=== PATIENT | female | born 1955 | race Caucasian/White ===

== ENCOUNTER 2024-08-11 15:22 | Observation (INO) ==
[2024-08-11] MEDS: NITROGLYCERIN SL 0.4 MG/TAB TAB SL PRN (15:50)
--- NOTE | 2024-08-11 15:53 | Emergency Department Note ---
Impression & Plan Hypertensive urgency, Chest pain, Hx of coronary artery bypass surgery, S/P coronary artery stent placement ED Provider Note NAME: JIMMY MARRERO AGE: 69 SEX: F : 1955 ARRIVES VIA: Walk-In INFORMANT: Patient, ED PROVIDER(S): Louie Tapia MD CHIEF COMPLAINT: Chest pain MEDICAL DECISION MAKING: Patient presents due to concern for chest pain. Significantly hypertensive. Patient with some ST depressions in the lateral high lateral leads. No obvious prior for comparison. The patient was ordered nitro. Blood work shows a normal white count H&H and platelet count kidney function is unremarkable. Chest pain significantly improved. Troponin negative. Given the patient's significant hypertension chest pain prior history of MS I do believe the patient would benefit from admission. I did speak the on-call hospital service Dr. Friend and the patient was admitted to the medicine service. Discussion w/ other healthcare providers: Dr. Carmona inpatient medicine service Prior /Outside records reviewed: None Differential diagnosis: Cardiac ischemia, aortic dissection, pulmonary embolism, pneumothorax, pneumonia, pericarditis, myocarditis, GERD, cholecystitis, pancreatitis, musculoskeletal, as well as other pathologies were considered. Diagnostics, as interpreted by me: ECG: Normal sinus rhythm, rate of 68, normal intervals, normal axis, ST depressions in the lateral and high lateral leads. No obvious STEMI. Repeat EKG interpreted by myself Normal sinus rhythm, rate of 68, normal intervals, normal axis ST depressions in lateral and high lateral leads. Cardiac monitoring: An order was placed for continuous cardiac monitoring. The monitor shows a rate of 72 with sinus rhythm. Patient was placed on pulse oximetry Medical decision rules: Heart score Imaging studies: I informally interpreted the patient's chest x-ray does not show obvious pneumonia or pneumothorax with formal report to follow. HPI: Patient presents due to concern for chest pains. The patient reports that she has had some intermittent chest pain over the last month left-sided and a heaviness. The patient states that today it started around 10 AM and has been constant throughout the day. Patient denies any falls or trauma. The patient does notice a positional component where if she lays flat seems to worsen and patient has had to use several pillows now. Patient denies any recent upper respiratory symptoms. The patient does have chronic leg swelling which is unchanged. Patient reports that she did have stents placed in 2004 and had worsening disease and had to have a bypass in 2013. The patient does follow with Dr. Moon with cardiology in [place] also follows with a Dr. Hurst with [facility]. Patient and state that they eat well but no changes in salt or processed foods in the diet. Patient states that she does take antihypertensives. Reviewed the medication list shows the patient does take carvedilol Imdur and lisinopril which she states she has had no recent changes or missed doses. Patient with a prior nitro prescription but states that this had so did not take it today. PAST MEDICAL HISTORY: See Below PAST SURGICAL HISTORY: See Below SOCIAL HISTORY: See Below HOME MEDICATIONS: See Below ALLERGIES: See Below VITALS: See Below PHYSICAL EXAMINATION: GENERAL: NAD, non-toxic. Wearing glasses. EYE EXAM: Normal conjunctiva. PERRL, no anisocoria and EOM's grossly intact w/o pain. OROPHARYNX: Moist mucus membranes, grossly normal dentition. NECK: Trachea midline, no stridor. Supple, no nuchal rigidity, no adenopathy, non-tender. No signs of meningismus. FROM of the neck with good chin to chest and neck extension. LUNGS: Clear to auscultation. Normal chest wall mechanics. HEART: NSR, no MRG. ABDOMEN: Abdomen soft, non-tender, no masses, no rebound or guarding. BACK: No CVA TTP. SKIN: No rashes and no bruising. UPPER EXTREMITIES: Upper extremities are grossly normal. LOWER EXTREMITIES: Grossly normal, 1-2+ symmetric bilateral lower extremity edema without calf pain erythema. NEURO EXAM: A&O x3, cranial nerves II-XII grossly intact, normal speech, moves all 4 extremities. Past Med/Surg History Problem List (Updated 08/14/24 @ 11:26 by Louie Tapia MD) Hypertension S/P coronary artery stent placement (Acute) CAD (coronary artery disease) Epigastric pain Hypertensive urgency (Acute) Hx of coronary artery bypass surgery (Acute) Chest pain (Acute) Medical History Chronic GERD Social History (System 08/12/24 @ 07:16 by Nathalia Garcia) Smoking Status: Former smoker Tobacco Type: Cigarettes Cigarettes Per Day: 1 ppd; Second Hand Exposure: No; Do You Dip or Chew Tobacco: No; Hx Alcohol Use: No Hx Substance Use: No Preferred Language: Egyptian Communication Ability: Effective Acid Wash Operator Required: No Beliefs That Will Affect Care: None Current Living Situation: Spouse Feels Safe at Home: Yes Assistive Devices: Glasses Allergies Allergies Allergy/AdvReac Type Severity Reaction Status Date / Time [id number] Reductase AdvReac Severe LEG/MUSCLE Verified 08/13/24 12:15 Inhibitor PAIN/CRAMPS Home Meds Home Medications Medication Instructions Recorded Confirmed acetaminophen 500 mg tablet 1,000 mg PO Q6H PRN PAIN/FEVER 08/11/24 08/11/24 (Tylenol Extra Strength) aspirin 81 mg tablet,delayed 81 mg PO QAM 08/11/24 08/11/24 release biotin 10,000 mcg capsule 10,000 mcg PO QAM 08/11/24 08/11/24 carvedilol 6.25 mg tablet 6.25 mg PO BID 08/11/24 08/11/24 clopidogrel 75 mg tablet 75 mg PO QAM 08/11/24 08/11/24 evolocumab 140 mg/mL subcutaneous 140 mg subcut .Q2WKS 08/11/24 08/11/24 pen injector (Christopher Schneidre) lisinopril 20 mg tablet 20 mg PO BID 08/11/24 08/11/24 lysine 500 mg tablet (L-Lysine) 500 mg PO QAM 08/11/24 08/11/24 pantoprazole 40 mg tablet,delayed 40 mg PO QAM 08/11/24 08/11/24 release Previous Rx's Medication Instructions Recorded amlodipine 5 mg tablet (Norvasc) 5 mg PO HS 30 days #30 tabs 08/13/24 isosorbide mononitrate 60 mg 60 mg PO QAM 30 days #30 tabs 08/13/24 tablet,extended release 24 hr nitroglycerin 0.4 mg sublingual 0.4 mg sublingual Q5M PRN chest 08/13/24 tablet (Nitrostat) pain #15 tabs pantoprazole 40 mg tablet,delayed 40 mg PO BID 7 days #14 tabs 08/13/24 release Results & Data (ED) Vital Signs Vital Signs - 24 hr 08/11/24 15:25 08/11/24 15:37 08/11/24 15:42 Temperature 36.6 C Temperature Source Temporal Artery Scan Pulse Rate 76 L Pulse Rate [Left Apical] 76 Respiratory Rate 20 L 24 Respiratory Effort / Characteristics Non-Labored Spontaneous Non-Labored Spontaneous Respiratory Depth Normal Normal Respiratory Pattern Regular Regular Blood Pressure 227/113 Blood Pressure [Right Arm] 255/120 H 241/122 H Blood Pressure Mean 151 Blood Pressure Mean [Right Arm] 165 161 Blood Pressure Position [Right Arm] Sitting Semi-fowlers Pulse Oximetry 94 96 Oxygen Delivery Method Room Air Room Air 08/11/24 15:56 08/11/24 16:00 08/11/24 16:01 Temperature Temperature Source Pulse Rate 67 Pulse Rate [Left Apical] Respiratory Rate 23 Respiratory Effort / Characteristics Respiratory Depth Respiratory Pattern Blood Pressure 216/101 H 217/101 H Blood Pressure [Right Arm] Blood Pressure Mean 128 135 Blood Pressure Mean [Right Arm] Blood Pressure Position [Right Arm] Pulse Oximetry 96 Oxygen Delivery Method Room Air 08/11/24 16:03 08/11/24 16:05 08/11/24 16:10 Temperature Temperature Source Pulse Rate 63 Pulse Rate [Left Apical] Respiratory Rate 15 Respiratory Effort / Characteristics Respiratory Depth Respiratory Pattern Blood Pressure 204/101 H 202/100 H Blood Pressure [Right Arm] Blood Pressure Mean 147 139 Blood Pressure Mean [Right Arm] Blood Pressure Position [Right Arm] Pulse Oximetry 96 Oxygen Delivery Method Room Air 08/11/24 16:12 08/11/24 16:19 Temperature Temperature Source Pulse Rate 63 61 Pulse Rate [Left Apical] Respiratory Rate 20 Respiratory Effort / Characteristics Respiratory Depth Respiratory Pattern Blood Pressure Blood Pressure [Right Arm] Blood Pressure Mean Blood Pressure Mean [Right Arm] Blood Pressure Position [Right Arm] Pulse Oximetry 95 Oxygen Delivery Method Room Air Home Medications Current Medication List: was personally reviewed by me Laboratory Data Attestation: I reviewed the patient's lab results. 08/12/24 06:13 08/12/24 06:13 Lab Results 08/11/24 08/11/24 Range/Units 15:50 15:55 WBC 7.64 (4.8-10.8) K/ul RBC 4.85 (4.20-5.40) M/uL Hgb 13.3 (12.0-16.0) g/dl Hct 40.6 (37.0-47.0) % MCV 83.7 (80.0-100.0) fL MCH 27.4 (25.0-34.0) pg MCHC 32.8 (32.0-36.0) g/dL RDW Std Deviation 41.5 (36.4-46.3) fL RDW Coeff of Jonathan 13.4 (11.5-14.5) % Plt Count 211 (130-400) K/uL MPV 10.4 (9.4-12.4) fL Immature Gran % (Auto) 0.4 % Neut % (Auto) 53.2 % Lymph % (Auto) 32.7 % [place] % (Auto) 8.0 % Eos % (Auto) 4.8 % Baso % (Auto) 0.9 % Neut # (Auto) 4.06 (1.40-6.50) K/uL Lymph # (Auto) 2.50 (1.20-3.40) K/uL [place] # (Auto) 0.61 H (0.11-0.59) K/uL Eos # (Auto) 0.37 (0.00-0.50) K/uL Baso # (Auto) 0.07 (0.00-0.20) K/uL Immature Gran # (Auto) 0.03 (0.01-0.20) K/uL Sodium 139 (136-145) mmol/L Potassium 3.8 (3.5-5.1) mmol/L Chloride 105 (98-107) mmol/L Carbon Dioxide 29 (21-32) mmol/L Anion Gap 5 (3-11) BUN 14 (6-23) mg/dl Creatinine 0.66 (0.6-1.2) mg/dl Est Cr Clr Drug Dosing 99.6 ml/min eGFR 94.90 BUN/Creatinine Ratio 21.2 H (10-20) Glucose 89 (70-99(Fasting)) mg/dl Calcium 9.4 (8.6-10.3) mg/dl Total Bilirubin 0.4 (0.2-1.0) mg/dl AST 13 (13-39) U/L ALT 11 (7-52) U/L Alkaline Phosphatase 102 (34-104) U/L Troponin I High Sens < 2.3 (0-14) pg/ml Total Protein 7.7 (6.0-8.3) gm/dl Albumin 4.4 (3.4-5.0) gm/dl Globulin 3.3 (2.5-4.0) gm/dl Albumin/Globulin Ratio 1.3 (0.9-2) Lipase 12 (11-82) U/L Hepatitis C Ab Screen Negative (Negative) Administered Medications Discontinued Medications Acetaminophen (Acetaminophen 500 Mg Tab) 1,000 mg PO Q8 PRN PRN Reason: Pain or Fever Stop: 09/10/24 19:42 Last Admin: 08/12/24 13:08 Dose: 1,000 mg Documented By: Admin: 08/11/24 23:50 Dose: 1,000 mg Documented By: ZACH Amlodipine Besylate (Amlodipine Besylate 5 Mg Tab) 5 mg PO HS LENORA Stop: 09/11/24 20:59 Last Admin: 08/12/24 21:34 Dose: 5 mg Documented By: ZACH Aspirin (Aspirin Chew 324 Mg) 324 mg PO NOW STA Stop: 08/11/24 16:32 Last Admin: 08/11/24 16:33 Dose: 324 mg Documented By: KEIKO Aspirin (Aspirin 81 Mg Ectab) 81 mg PO [facility] Stop: 09/11/24 08:59 Last Admin: 08/13/24 14:25 Dose: 81 mg Documented By: AEArnulfo Admin: 08/12/24 08:11 Dose: 81 mg Documented By: ALCIDES Carvedilol (Carvedilol 6.25 Mg Tab) 6.25 mg PO NOW ONE Stop: 08/11/24 19:31 Last Admin: 08/11/24 19:53 Dose: 6.25 mg Documented By: KEIKO Carvedilol (Carvedilol 6.25 Mg Tab) 6.25 mg PO BID [facility] Stop: 09/10/24 20:59 Last Admin: 08/13/24 10:40 Dose: 6.25 mg Documented By: AEArnulfo Admin: 08/12/24 21:29 Dose: 6.25 mg Documented By: Admin: 08/12/24 11:30 Dose: 6.25 mg Documented By: Admin: 08/11/24 20:30 Dose: Not Given Documented By: KEIKO Clopidogrel Bisulfate (Clopidogrel Bisulfate 75 Mg Tab) [facility] Stop: 09/11/24 08:59 Last Admin: 08/13/24 10:40 Dose: 75 mg Documented By: AEArnulfo Admin: 08/12/24 08:11 Dose: 75 mg Documented By: ALCIDES Hydralazine HCl (Hydralazine Hcl 20 Mg/Ml Vial) 10 mg IV NOW STA Stop: 08/11/24 18:13 Last Admin: 08/11/24 18:29 Dose: 10 mg Documented By: MAGDALENO Isosorbide Mononitrate (Isosorbide [place] Extended Rel 60 Mg Tabcr) 60 mg PO QAM LENORA Stop: 09/11/24 08:59 Last Admin: 08/13/24 10:40 Dose: 60 mg Documented By: Admin: 08/12/24 11:30 Dose: 60 mg Documented By: ALCIDES Lidocaine HCl (Lidocaine 2% 2 Ml Vial/Amp(20mg/Ml)) Confirm Administered Dose 4 ml INFIL .STK-MED ONE Stop: 08/13/24 12:22 Last Admin: 08/13/24 14:26 Dose: Not Given Documented By: TAM Lisinopril (Lisinopril 20 Mg Tab) 20 mg PO NOW STA Stop: 08/11/24 19:19 Last Admin: 08/11/24 19:54 Dose: 20 mg Documented By: MARC Lisinopril (Lisinopril 20 Mg Tab) 20 mg PO BID [facility] Stop: 09/10/24 20:59 Last Admin: 08/13/24 10:41 Dose: 20 mg Documented By: Admin: 08/12/24 21:29 Dose: 20 mg Documented By: Admin: 08/12/24 11:30 Dose: 20 mg Documented By: Admin: 08/11/24 20:30 Dose: Not Given Documented By: MARC Metoprolol Tartrate (Metoprolol Tartrate 1 Mg/Ml Vial) 5 mg IV NOW STA Stop: 08/11/24 20:37 Last Admin: 08/11/24 20:53 Dose: 5 mg Documented By: MARC Nitroglycerin (Nitroglycerin Sl 0.4 Mg/Tab Tab) 0.4 mg SL Q5M PRN PRN Reason: Chest Pain Stop: 09/10/24 15:45 Last Admin: 08/11/24 17:10 Dose: 0.4 mg Documented By: Admin: 08/11/24 16:31 Dose: 0.4 mg Documented By: Admin: 08/11/24 15:50 Dose: 0.4 mg Documented By: MARC Nitroglycerin (Nitroglycerin 2% Ointment 30gm Tube) 1 inch EXT NOW ONE Stop: 08/11/24 19:31 Last Admin: 08/11/24 19:31 Dose: 1 inch Documented By: MARC Pantoprazole Sodium (Pantoprazole 40 Mg Tab) 40 mg PO BID [facility] Stop: 09/10/24 20:59 Last Admin: 08/13/24 10:41 Dose: 40 mg Documented By: Admin: 08/12/24 21:28 Dose: 40 mg Documented By: Admin: 08/12/24 08:11 Dose: 40 mg Documented By: Admin: 08/12/24 00:05 Dose: 40 mg Documented By: ZACH Propofol (Propofol Iv Emulsion 10 Mg/Ml 20 Ml Vial) Confirm Administered Dose 200 mg IV .STK-MED ONE Stop: 08/13/24 12:22 Last Admin: 08/13/24 14:26 Dose: Not Given Documented By: TAM Sucralfate (Sucralfate 1 Gm/10 Ml Udc) 1 gm PO QID [facility] Stop: 09/11/24 16:59 Last Admin: 08/13/24 14:26 Dose: 1 gm Documented By: Admin: 08/13/24 10:41 Dose: 1 gm Documented By: Admin: 08/12/24 21:29 Dose: 1 gm Documented By: Admin: 08/12/24 18:09 Dose: 1 gm Documented By: ALCIDES Imaging Data Radiologist's Impression: Chest X-Ray 08/11/24 15:47 EXAM: Radiograph of the Chest 1 View INDICATION: Chest pain TECHNIQUE: Frontal view of the chest. COMPARISON: No relevant prior studies available. FINDINGS: Artifacts: Artifact shadow partially situated by technique. Lungs and pleural spaces: Prominent probable chronic interstitial thickening. No consolidation or pulmonary edema. No pleural effusion or pneumothorax. Heart: Mild enlargement of the cardiac shadow noted partially accentuated by technique. Sternal wires likely reflecting previous coronary bypass. Mediastinum: There is a small hiatal hernia. Bones/joints: No fracture, erosion or dislocation. Soft tissues: No abnormality noted. No radiopaque foreign body noted. Upper abdomen: No abnormality noted. IMPRESSION: No acute cardiopulmonary disease. ACT 112: N/A Electronically signed by Janeth Mobley 08-11-2024 4:51 PM Discharge Plan Visit Data Chief Complaint: Chest Pain Stated Complaint: CHEST PAIN ED Provider: Louie Tapia Discharge Problem: Hypertensive urgency, Chest pain, Hx of coronary artery bypass surgery, S/P coronary artery stent placement Patient Disposition: Admitted As Inpatient Discharge Instructions Interventions: ED Discharge Assessment Last Done: 08/11/24 19:44 Discharge Problem: Chest pain Qualifiers: Chest pain type: unspecified Qualified Code(s): R07.9 - Chest pain, unspecified
[2024-08-11 16:03] LABS: Basophils # (auto) 0.07 K/uL (0.00-0.20); Basophils % (auto) 0.9 %; Eosinophils # (auto) 0.37 K/uL (0.00-0.50); Eosinophils % (auto) 4.8 %; Hematocrit (blood only) 40.6 % (37.0-47.0); Hemoglobin 13.3 g/dl (12.0-16.0); Immature Granulocytes # (auto) 0.03 K/uL (0.01-0.20); Immature Granulocytes % (auto) 0.4 %; Lymphocytes % (auto) 32.7 %; Mean Corpuscular Hemoglobin 27.4 pg (25.0-34.0); Mean Corpuscular Hgb Conc 32.8 g/dL (32.0-36.0); Mean Corpuscular Volume 83.7 fL (80.0-100.0); Mean Platelet Volume 10.4 fL (9.4-12.4); Monocytes # (auto) 0.61 K/uL (0.11-0.59); Neutrophils # (auto) 4.06 K/uL (1.40-6.50); Neutrophils % (auto) 53.2 %; Platelet Count 211 K/uL (130-400); RDW Coefficient of Variation 13.4 % (11.5-14.5); RDW Standard Deviation 41.5 fL (36.4-46.3); Red Blood Count 4.85 M/uL (4.20-5.40); White Blood Count 7.64 K/ul (4.8-10.8)
[2024-08-11 16:21] LABS: Alanine Aminotransferase 11 U/L (7-52); Albumin Globulin Ratio 1.3 (0.9-2); Albumin Level 4.4 gm/dl (3.4-5.0); Alkaline Phosphatase 102 U/L (34-104); Anion Gap 5 (3-11); Aspartate Aminotransferase 13 U/L (13-39); BUN Creatinine Ratio 21.2 (10-20); Bilirubin,Total 0.4 mg/dl (0.2-1.0); Blood Urea Nitrogen 14 mg/dl (6-23); Calcium 9.4 mg/dl (8.6-10.3); Carbon Dioxide 29 mmol/L (21-32); Chloride 105 mmol/L (98-107); Creatinine Clr Calc Pharmacy 99.6 ml/min; Globulin 3.3 gm/dl (2.5-4.0); Glucose 89 mg/dl (70-99(Fasting)); Lipase 12 U/L (11-82); Potassium 3.8 mmol/L (3.5-5.1); Sodium 139 mmol/L (136-145); Total Protein 7.7 gm/dl (6.0-8.3)
[2024-08-11 16:27] LABS: Troponin I High Sensitivity < 2.3 pg/ml (0-14)
[2024-08-11] MEDS: ASPIRIN CHEW 324 MG PO STA (16:33)
--- NOTE | 2024-08-11 16:37 | History & Physical Report ---
Date of Service August 11, 2024 Assessment & Plan (1) Chest pain: (2) Hx of coronary artery bypass surgery: (3) Hypertensive urgency: (4) Epigastric pain: Plan Tracey is a 69F with a PMHx of CAD (s/p stents in 2004, bypass in 2013, follows with Dr. Moon), HTN, GERD who presents with chest pain since 10 AM this morning. initial troponin reassuring, EKG with T wave inversions, unclear if this is a new finding or not as there are no other EKGs in the system. Also with hypertensive urgency and epigastric pain that awakes her from sleep. Will admit for cardiology consultation, further workup #Chest Pain/ hx of bypass Initial troponin negative. EKG with T wave inversion V4,V5,V6 - baseline unclear. Repeat EKG in AM. EKG prn with chest pain Trend Troponin Q6H Consult cardiology with hx of bypass/stents Continue Aspirin, carvedilol, plavix, imdur, lisinopril Nitro PRN #Hypertensive Urgency Pt reports that her BPs at home have been running 180s/100s Will increase dose of Imdur to 60 hydralazine PRN BP with manual cuff 190/80 right, 182/98 left #Epigastric Pain / GERD Awakens her from sleep, reports black bowel movements Check Hemoccult Avoid NSAIDs increase PPI to BID. Defer Carafate if needs EGD Dispo: admit to med/tele DVT proh: heparin SQ CODE STATUS: Full code History of Present Illness Chief Complaint: chest pain Primary Care Provider: Jojo Harrison MD Tracey is a 69F with a PMHx of CAD (s/p stents in 2004, bypass in 2013, follows with Dr. Moon), HTN, GERD who presents with chest pain since 10 AM this morning. Reports that she has had this pain on and off for the last month or so, comes and goes without intervention. She has as needed nitro at home but has not taken this because it is . The pain mainly happens at rest, does not seem to get worse with activity. During her episodes of pain she denies associated shortness of breath but does report flushing as well as sweating, sometimes she is lightheaded. The episode that started at 10 AM this morning was worse than prior and not going away which prompted her to come to the emergency department. States that she has been checking her blood pressures at home and they have been running 180s/90-100s for the last week. Reports compliance with her medication Follows with Dr. Duarte in [place], has not been seen there in about a year. Is looking to transfer her care to [facility] Extensive family hx of cardiac issues (brother - stroke, 2 brothers with bypass, Mother & Father - needing open heart surgery) Had a knee replacement in February and has been taking more NSAIDs since including Celebrex Also notes epigastric pain that awakens her from sleep, is not able to lay flat. Does not feel shortness of breath when she lays flat but just epigastric pain. Has noticed some dark/ black stool when she gets constipated while taking pain meds ED course: Aspirin 324 mg Nitro x 2 Allergies Allergy/AdvReac Type Severity Reaction Status Date / Time [id number] Reductase AdvReac Severe LEG/MUSCLE Verified 08/11/24 16:28 Inhibitor PAIN/CRAMPS Home Medications Medication Instructions Recorded Confirmed Type acetaminophen 500 mg tablet 1,000 mg PO Q6H PRN PAIN/FEVER 08/11/24 08/11/24 History (Tylenol Extra Strength) aspirin 81 mg tablet,delayed 81 mg PO QAM 08/11/24 08/11/24 History release biotin 10,000 mcg capsule 10,000 mcg PO QAM 08/11/24 08/11/24 History carvedilol 6.25 mg tablet 6.25 mg PO BID 08/11/24 08/11/24 History celecoxib 200 mg capsule 200 mg PO BID PRN Pain 08/11/24 08/11/24 History clopidogrel 75 mg tablet 75 mg PO QAM 08/11/24 08/11/24 History evolocumab 140 mg/mL subcutaneous 140 mg subcut .Q2WKS 08/11/24 08/11/24 History pen injector (Christopher Schneider) isosorbide mononitrate 30 mg 3 mg PO QAM 08/11/24 08/11/24 History tablet,extended release 24 hr lisinopril 20 mg tablet 20 mg PO BID 08/11/24 08/11/24 History lysine 500 mg tablet (L-Lysine) 500 mg PO QAM 08/11/24 08/11/24 History pantoprazole 40 mg tablet,delayed 40 mg PO QAM 08/11/24 08/11/24 History release Past Med/Surg History Problem List (Updated 08/11/24 @ 18:13 by Trina Sharif PA-C) Epigastric pain Hypertensive urgency Hx of coronary artery bypass surgery Chest pain Social History Smoking Status: Former smoker Tobacco Type: Cigarettes Cigarettes Per Day: 1 ppd; Smoking End Date: 2009; Second Hand Exposure: No; Do You Dip or Chew Tobacco: No; Tobacco Cessation Education Requested by Patient: No Hx Alcohol Use: No Hx Substance Use: No Preferred Language: Occitan Communication Ability: Effective Metal Leaf Layer Required: No Beliefs That Will Affect Care: None Current Living Situation: Spouse Other Information That Helps Us Care for You: No Feels Safe at Home: Yes Safety Concerns: Feels Safe At This Time Assistive Devices: Denture - Upper and Glasses Review of Systems Review of Systems: All systems reviewed & are unremarkable except as noted in Subjective Physical Exam Physical Exam: General: NAD, VS as above Resp: normal respiratory effort, lungs clear to auscultation CV: RRR, no murmur, reproducable chest wall pain to left sided of chest wall Abd: normal bowel sounds, tenderness to epigastric area, soft Extremities: Moves all extremities, no edema Neuro: A&O x3, Skin: intact, no lesions noted Results & Data Results & Data Vital Signs (Past 12 Hours) Vital Signs Temp Pulse Pulse Resp BP BP Pulse Ox 08/11/24 16:19 61 08/11/24 16:12 63 20 95 08/11/24 16:10 202/100 H 08/11/24 16:05 204/101 H 08/11/24 16:03 63 15 96 08/11/24 16:01 217/101 H 08/11/24 16:00 67 23 96 08/11/24 15:56 216/101 H 08/11/24 15:42 241/122 H 08/11/24 15:37 76 24 255/120 H 96 08/11/24 15:25 97.9 F 76 L 20 L 227/113 94 O2 Del Method 08/11/24 16:19 08/11/24 16:12 Room Air 08/11/24 16:10 08/11/24 16:05 08/11/24 16:03 Room Air 08/11/24 16:01 08/11/24 16:00 Room Air 08/11/24 15:56 08/11/24 15:42 08/11/24 15:37 Room Air 08/11/24 15:25 Room Air Laboratory Results CBC chemistry, troponin reviewed Lipase reviewed Diagnostic Findings chest x-ray reviewed Supervising Physician Co-Signing Physician Notes Attending addendum: I have physically seen this patient, have supervised the CANDIE's activities, and agree with the H&P unless as otherwise noted. Assessment and Plan: The patient is a 69-year-old female past medical history including CAD status post stents in 2004, status post CABG 2013, has followed with Dr. Franz in [place], but reports following with his PA with past 3 years, hypertension, GERD who presents to the emergency department with complaint of substernal chest pain, radiating toward left side and toward her neck. She reports that she has had the symptoms off and on over the past week, however, his symptoms became more intense and more persistent, and presented to the ED for assessment and management. Blood pressure was found to be significantly elevated in the emergency department, to max of 216/119, and [facility]. #Chest pain/hypertension/CAD/history of stents/history of CABG- The patient will be admitted to telemetry for serial cardiac enzymes, serial EKG's, cardiac rhythm monitoring and a 2-D echocardiogram with Dopplers. Will give her usual dosing of carvedilol 6.25 mg this evening, 1 lisinopril 20 mg now, and Nitropaste 1 inch anterior chest wall Patient did require Lopressor 5 mg IV x 1, with improvement in blood pressure to 150s over 80s, and then transferred to the PCU for further evaluation and treatment Initial EKG with nonspecific ST-T changes in lateral leads, improved with improved blood pressure control Continue aspirin 81 mg every morning, carvedilol 6.25 mg p.o. twice daily, clopidogrel 70 mg every morning, lisinopril 20 mg p.o. twice daily. If needed will have additional Lopressor 5 mg IV every 4 hours as needed for systolic blood pressure greater than 160 Patient will ultimately Imdur resumed Cardiology consult. Assessment 105 minutes acute findings. Chest pain Epigastric discomfort/history of GERD Reportedly had question of a few black bowel movements Morning Hemoccults Avoiding NSAIDs Continue aspirin for now PPI increased to twice daily as noted PG Care Time/CCT Total # of Minutes Spent Total Time Spent with Patient: Total time spent is greater than 50% in coordination of care (as documented) at patient's floor/unit and/or counseling patient: Coding Level of Care Code 82131 INT INP/OBS CARE 3/75MIN Diagnoses Chest pain R07.9 Hx of coronary artery bypass surgery Z95.1 Hypertensive urgency I16.0 Epigastric pain R10.13
--- NOTE | 2024-08-11 16:51 | XRay Report ---
EXAM: Radiograph of the Chest 1 View INDICATION: Chest pain TECHNIQUE: Frontal view of the chest. COMPARISON: No relevant prior studies available. FINDINGS: Artifacts: Artifact shadow partially situated by technique. Lungs and pleural spaces: Prominent probable chronic interstitial thickening. No consolidation or pulmonary edema. No pleural effusion or pneumothorax. Heart: Mild enlargement of the cardiac shadow noted partially accentuated by technique. Sternal wires likely reflecting previous coronary bypass. Mediastinum: There is a small hiatal hernia. Bones/joints: No fracture, erosion or dislocation. Soft tissues: No abnormality noted. No radiopaque foreign body noted. Upper abdomen: No abnormality noted. IMPRESSION: No acute cardiopulmonary disease. ACT 112: N/A Electronically signed by Janeth Mobley 08-11-2024 4:51 PM
[2024-08-11] MEDS: hydrALAZINE HCL 20 MG/ML VIAL IV STA (18:29)
[2024-08-11] MEDS: NITROGLYCERIN 2% OINTMENT 30GM TUBE EXT ONE (19:31)
[2024-08-11] MEDS ORDERED: ONDANSETRON INJ 2 MG/ML 2 ML VIAL IV PRN (19:43)
[2024-08-11] MEDS ORDERED: hydrALAZINE HCL 20 MG/ML VIAL IV PRN (19:43)
[2024-08-11] MEDS: carvediloL 6.25 MG TAB PO ONE (19:53)
[2024-08-11] MEDS: lisinopril 20 MG TAB PO STA (19:54)
[2024-08-11] MEDS: lisinopril 20 MG TAB PO SCH (20:30)
[2024-08-11] MEDS: carvediloL 6.25 MG TAB PO SCH (20:30)
[2024-08-11] MEDS: METOPROLOL TARTRATE 1 MG/ML VIAL IV STA (20:53)
[2024-08-11] MEDS: ACETAMINOPHEN 500 MG TAB PO PRN (23:50)
[2024-08-12] MEDS: PANTOprazole 40 MG TAB PO SCH (00:05)
[2024-08-12 06:38] LABS: Hematocrit (blood only) 37.5 % (37.0-47.0); Hemoglobin 12.4 g/dl (12.0-16.0); Mean Corpuscular Hemoglobin 27.6 pg (25.0-34.0); Mean Corpuscular Hgb Conc 33.1 g/dL (32.0-36.0); Mean Corpuscular Volume 83.3 fL (80.0-100.0); Mean Platelet Volume 10.4 fL (9.4-12.4); Platelet Count 180 K/uL (130-400); RDW Coefficient of Variation 13.7 % (11.5-14.5); RDW Standard Deviation 41.8 fL (36.4-46.3); White Blood Count 7.01 K/ul (4.8-10.8)
--- NOTE | 2024-08-12 06:49 | Electrocardiogram Report ---
Test Reason : Blood Pressure : */* mmHG Vent. Rate : 68 BPM Atrial Rate : 68 BPM P-R Int : 180 ms QRS Dur : 100 ms QT Int : 414 ms P-R-T Axes : 50 37 100 degrees QTcB Int : 440 ms Normal sinus rhythm Nonspecific ST and T wave abnormality Abnormal ECG No previous ECGs available Confirmed by Sterling Ferguson ([id number]) on 08/12/2024 6:49:08 AM Referred By: Confirmed By: Sterling Ferguson
[2024-08-12 07:14] LABS: BUN Creatinine Ratio 23.1 (10-20); Calcium 9.1 mg/dl (8.6-10.3); Creatinine Clr Calc Pharmacy 100.6 ml/min; Potassium 3.8 mmol/L (3.5-5.1)
[2024-08-12] MEDS: ASPIRIN 81 MG ECTAB PO SCH (08:11)
[2024-08-12] MEDS: CLOPIDOGREL BISULFATE 75 MG TAB PO SCH (08:11)
--- NOTE | 2024-08-12 08:55 | Cardiology Consultation ---
Date of Consultation August 12, 2024 Assessment & Plan (1) CAD (coronary artery disease): (2) Hx of coronary artery bypass surgery: (3) S/P coronary artery stent placement: (4) Hypertensive urgency: (5) Hypertension: (6) Epigastric pain: Plan ASSESSMENT/PLAN: 1. Hypertensive urgency: Blood pressure has improved. Most recent blood pressure charted is 102/54, which seems to be an outlier. If blood pressure otherwise remains elevated, recommend amlodipine 5 mg daily in addition to KENIA inhibitor and carvedilol. If further therapy is needed, could then add low-dose diuretic such as chlorthalidone. 2. CAD s/p PCI x 2 and then CABG x 2: Longstanding chest discomfort of at least 24 hours with negative high-sensitivity troponin. Chest pain does not suggest ischemic heart disease as the etiology. Recommend blood pressure management as above. Continue beta-jessica. Intolerant to statin therapy. Continue PCSK9 inhibitor. 3. Chest pain: Atypical and that it has been occurring for at least 24 hours high-sensitivity troponin levels remain normal. Recommend echo. Chest pain may be due to hypertension, especially given significant improvement once blood pressure has improved. Consider CTA to evaluate for PE or aorta issues, however seems to be much improved now, and no shortness of breath. 4. Hypertension: As above. Most recent blood pressure was charted as low normal and therefore no changes made at this time but if this is truly an outlier and her blood pressure otherwise remains significantly elevated, would initiate amlodipine. 5. Dyslipidemia: Statin intolerant. Takes PCSK9 inhibitor in the outpatient setting. Continue PCSK9 inhibitor. 6. Epigastric pain: Seems to be her biggest pain issue currently and also tender on examination with a history of ulcer. Discussed with GI (Julieta Lockett). They plan to consider EGD tomorrow. 7. Disposition: Cardiology will continue to follow. She asked to schedule outpatient appointment to transfer cardiology care to [facility]. Will reach out to the office to help assist in making a follow-up appointment. Patient care communicated with primary hospitalist service, Trina Sharif. Addendum echo 08/12/2024: Normal LV size, wall motion, systolic function. EF 60- 65%. Mild LVH. Borderline dilated RV with normal systolic function. Mild left atrial dilation. Sclerotic aortic valve without significant stenosis. Mild MR. Thank you for allowing me to participate in the care of your patient. Please call for any other questions or concerns. Sincerely, Corona Ferguson M.D. History of Present Illness Reason for Consultation: "CP, hx of bypass" Requesting Physician: Trina Sharif PA-C Attending Physician: Bashir Reinoso MD History of Present Illness Ms. Olson is a very pleasant 69-year-old female with a history significant for CAD s/p PCI x 2 (2004) and CABG x 2 (2013 - SVG via left leg), hypertension, dyslipidemia, H. pylori gastritis, peptic ulcer disease, and GERD. Her primary collision center manager is Dr. Alejandro in the [place] area. She has had the following studies/procedures: 1. PCI times 07/2004 2. CABG times 07/2013: Underwent vein harvest x 2 from the left lower extremity. Details unknown. She was admitted on 08/11/2024 with chest discomfort. It is a heavy left-sided chest pain that can radiate to the neck and jaw that began at approximately 10 AM on 08/11/2024 and has persisted throughout her hospital stay. It improved significantly by the afternoon, approximately 5 hours after onset but still remains at a low level pain. The pain also radiated to her back. Symptoms are similar to prior angina but she also has epigastric pain which is actually worse currently than the chest discomfort. The epigastric discomfort is not triggered by food but is worse with supine position. She has not tried antacids. The epigastric discomfort has been occurring over the past 2 months but significantly worsened over the past week. She also felt flushed while ambulating in a grocery store. Her chest discomfort however has not worsened with exertion. On presentation, she was markedly hypertensive up to 260 systolic and diastolic up to 122 mmHg. At home, her blood pressure systolic typically runs 150-190s mmHg. She was given Nitropaste and has had hydralazine made available on an as needed basis. According to EMR, she received 1 dose of hydralazine on 08/11/2024. She otherwise remains on lisinopril 20 mg daily and carvedilol 6.25 mg twice daily. Imdur was increased to 60 mg daily. She denies melena, hematochezia, hematuria, syncope, near syncope, palpitations, or worsening edema. She has chronic left lower extremity edema ever since vein harvest. Review of systems: As above. Family history: Positive for CAD Social history: She quit smoking in 2009. No alcohol or drug abuse. Lives at home with her . 1 daughter. Lives in [place]. She was unaccompanied. Allergies Allergy/AdvReac Type Severity Reaction Status Date / Time Kwvudun-CAB-OnJ Reductase AdvReac Severe LEG/MUSCLE Verified 08/12/24 07:16 Inhibitor PAIN/CRAMPS Home Medications Medication Instructions Recorded Confirmed Type acetaminophen 500 mg tablet 1,000 mg PO Q6H PRN PAIN/FEVER 08/11/24 08/11/24 History (Tylenol Extra Strength) aspirin 81 mg tablet,delayed 81 mg PO QAM 08/11/24 08/11/24 History release biotin 10,000 mcg capsule 10,000 mcg PO QAM 08/11/24 08/11/24 History carvedilol 6.25 mg tablet 6.25 mg PO BID 08/11/24 08/11/24 History celecoxib 200 mg capsule 200 mg PO BID PRN Pain 08/11/24 08/11/24 History clopidogrel 75 mg tablet 75 mg PO QAM 08/11/24 08/11/24 History evolocumab 140 mg/mL subcutaneous 140 mg subcut .Q2WKS 08/11/24 08/11/24 History pen injector (Christopher Schneider) isosorbide mononitrate 30 mg 3 mg PO QAM 08/11/24 08/11/24 History tablet,extended release 24 hr lisinopril 20 mg tablet 20 mg PO BID 08/11/24 08/11/24 History lysine 500 mg tablet (L-Lysine) 500 mg PO QAM 08/11/24 08/11/24 History pantoprazole 40 mg tablet,delayed 40 mg PO QAM 08/11/24 08/11/24 History release Problem List (Updated 08/12/24 @ 17:23 by Sterling Ferguson MD) Hypertension S/P coronary artery stent placement CAD (coronary artery disease) Epigastric pain Hypertensive urgency Hx of coronary artery bypass surgery Chest pain Patient History Medical History (Updated 08/12/24 @ 17:23 by Sterling Ferguson MD) Chronic GERD Social History (System 08/12/24 @ 07:16 by Nathalia Garcia) Smoking Status: Former smoker Tobacco Type: Cigarettes Cigarettes Per Day: 1 ppd; Smoking End Date: 2009; Second Hand Exposure: No; Do You Dip or Chew Tobacco: No; Tobacco Cessation Education Requested by Patient: No Hx Alcohol Use: No Hx Substance Use: No Preferred Language: Wolof Communication Ability: Effective Yarn Carrier Required: No Beliefs That Will Affect Care: None Current Living Situation: Spouse Other Information That Helps Us Care for You: No Feels Safe at Home: Yes Safety Concerns: Feels Safe At This Time Assistive Devices: Glasses Physical Exam Physical Exam: Gen.: No acute distress. Alert and oriented. HEENT: Anicteric sclera. Neck: No JVD. No bruits. Normal carotid upstrokes bilaterally. Cardiac: Regular. Normal S1-S2. 2/6 systolic ejection murmur best heard at the right upper sternal border. Pulmonary: Clear to auscultation bilaterally without wheezes, rales, or rhonchi. Abdomen: Soft, nondistended, with normoactive bowel sounds. No bruits noted. Epigastric tenderness, reproducing pain described in HPI. Extremities: 2+ radial pulses bilaterally. 2+ posterior tibialis pulses bilaterally. Trace right lower extremity edema. Trace to 1+ left lower extremity edema. Left lower extremity is larger in circumference compared to the right (chronic per patient). s/p left lower extremity vein harvest. No edema. Chest: Nontender to palpation. Results & Data Vital Signs (Past 12 Hours) Vital Signs Temp Pulse Pulse Resp BP BP BP 08/12/24 07:30 36.6 C 70 20 185/79 H 08/12/24 05:47 70 08/12/24 03:49 36.6 C 76 20 151/68 H 08/12/24 00:41 36.6 C 61 18 137/53 L 08/11/24 23:44 36.6 C 71 16 125/71 08/11/24 21:49 08/11/24 21:49 36.2 C L 71 18 194/82 H 197/94 H 08/11/24 21:49 71 194/82 H 08/11/24 21:41 73 08/11/24 21:12 70 164/82 H 08/11/24 21:06 70 16 08/11/24 21:00 184/96 H 08/11/24 20:57 73 18 08/11/24 20:54 73 12 Pulse Ox O2 Del Method O2 Flow Rate 08/12/24 07:30 95 Room Air 08/12/24 05:47 08/12/24 03:49 93 Room Air 08/12/24 00:41 97 Nasal Cannula 2 08/11/24 23:44 95 Room Air 08/11/24 21:49 Room Air 08/11/24 21:49 97 Room Air 08/11/24 21:49 08/11/24 21:41 08/11/24 21:12 97 Room Air 08/11/24 21:06 97 Room Air 08/11/24 21:00 08/11/24 20:57 97 Room Air 08/11/24 20:54 97 Room Air Laboratory Results Laboratory Results - last 24 hr 08/11/24 08/11/24 08/11/24 15:50 15:55 17:54 WBC 7.64 RBC 4.85 Hgb 13.3 Hct 40.6 MCV 83.7 MCH 27.4 MCHC 32.8 RDW Std Deviation 41.5 RDW Coeff of Jonathan 13.4 Plt Count 211 MPV 10.4 Immature Gran % (Auto) 0.4 Neut % (Auto) 53.2 Lymph % (Auto) 32.7 Ocean % (Auto) 8.0 Eos % (Auto) 4.8 Baso % (Auto) 0.9 Neut # (Auto) 4.06 Lymph # (Auto) 2.50 Ocean # (Auto) 0.61 H Eos # (Auto) 0.37 Baso # (Auto) 0.07 Immature Gran # (Auto) 0.03 Sodium 139 Potassium 3.8 Chloride 105 Carbon Dioxide 29 Anion Gap 5 BUN 14 Creatinine 0.66 Est Cr Clr Drug Dosing 99.6 eGFR 94.90 BUN/Creatinine Ratio 21.2 H Glucose 89 Calcium 9.4 Total Bilirubin 0.4 AST 13 ALT 11 Alkaline Phosphatase 102 Troponin I High Sens < 2.3 4.5 Total Protein 7.7 Albumin 4.4 Globulin 3.3 Albumin/Globulin Ratio 1.3 Lipase 12 Hepatitis C Ab Screen Negative 08/12/24 08/12/24 00:19 06:13 WBC 7.01 RBC 4.50 Hgb 12.4 Hct 37.5 MCV 83.3 MCH 27.6 MCHC 33.1 RDW Std Deviation 41.8 RDW Coeff of Jonathan 13.7 Plt Count 180 MPV 10.4 Immature Gran % (Auto) Neut % (Auto) Lymph % (Auto) Ocean % (Auto) Eos % (Auto) Baso % (Auto) Neut # (Auto) Lymph # (Auto) Ocean # (Auto) Eos # (Auto) Baso # (Auto) Immature Gran # (Auto) Sodium 142 Potassium 3.8 Chloride 107 Carbon Dioxide 29 Anion Gap 6 BUN 15 Creatinine 0.65 Est Cr Clr Drug Dosing 100.6 eGFR 95.25 BUN/Creatinine Ratio 23.1 H Glucose 107 H Calcium 9.1 Total Bilirubin AST ALT Alkaline Phosphatase Troponin I High Sens 5.1 < 2.3 Total Protein Albumin Globulin Albumin/Globulin Ratio Lipase Hepatitis C Ab Screen Diagnostic Findings Labs reviewed and notable for normal high-sensitivity troponin x 4, normal potassium, normal renal function, normal transaminase levels, normal blood counts. ECGs personally reviewed: ECG 08/11/2024 at 1535: Sinus rhythm [address]/T wave abnormality. ECG 08/11/2024 at 1636: Sinus rhythm [address]/T wave abnormality. ECG 08/12/2024 at 6:46 AM: Sinus rhythm [address]/T wave abnormality. History and physical report reviewed. Chest x-ray 08/11/2024: No acute cardiopulmonary process per radiology. Telemetry personally reviewed: Sinus. No arrhythmia. Medications Administered Current Inpatient Medications Acetaminophen (Acetaminophen 500 Mg Tab) 1,000 mg PO Q8 PRN PRN Reason: Pain or Fever Stop: 09/10/24 19:42 Last Admin: 08/11/24 23:50 Dose: 1,000 mg Aspirin (Aspirin 81 Mg Ectab) [facility] [place] [place]: 09/11/24 08:59 Last Admin: 08/12/24 08:11 Dose: 81 mg Carvedilol (Carvedilol 6.25 Mg Tab) 6.25 mg PO BID [facility] Stop: 09/10/24 20:59 Last Admin: 08/11/24 20:30 Dose: Not Given Clopidogrel Bisulfate (Clopidogrel Bisulfate 75 Mg Tab) 75 mg PO QAM [facility] Stop: 09/11/24 08:59 Last Admin: 08/12/24 08:11 Dose: 75 mg Hydralazine HCl (Hydralazine Hcl 20 Mg/Ml Vial) 10 mg IV Q4H PRN PRN Reason: Hypertension Stop: 09/10/24 19:42 Isosorbide Mononitrate (Isosorbide Ocean Extended Rel 60 Mg Tabcr) 60 mg PO QAM [facility] Stop: 09/11/24 08:59 Lisinopril (Lisinopril 20 Mg Tab) 20 mg PO BID [facility] Stop: 09/10/24 20:59 Last Admin: 08/11/24 20:30 Dose: Not Given Nitroglycerin (Nitroglycerin Sl 0.4 Mg/Tab Tab) 0.4 mg SL Q5M PRN PRN Reason: Chest Pain Stop: 09/10/24 15:45 Last Admin: 08/11/24 17:10 Dose: 0.4 mg Ondansetron HCl (Ondansetron Inj 2 Mg/Ml 2 Ml Vial) 4 mg IV Q6H PRN PRN Reason: Nausea Stop: 09/10/24 19:42 Pantoprazole Sodium (Pantoprazole 40 Mg Tab) 40 mg PO BID [facility] Stop: 09/10/24 20:59 Last Admin: 08/12/24 08:11 Dose: 40 mg PG Care Time/CCT Total # of Minutes Spent Total Time Spent with Patient: Total time spent is greater than 50% in coordination of care (as documented) at patient's floor/unit and/or counseling patient: Coding Level of Care Code 20110 INT INP/OBS CARE 375MIN Diagnoses CAD (coronary artery disease) I25.10 Hx of coronary artery bypass surgery Z95.1 S/P coronary artery stent placement Z95.5 Hypertensive urgency I16.0 Hypertension I10 Epigastric pain R10.13
--- NOTE | 2024-08-12 11:20 | Gastrointestinal Consultation ---
Date of Consultation August 12, 2024 Assessment & Plan (1) Epigastric pain: 69 year old female with history of CAD (s/p stents in 2004, bypass in 2013, follows with Dr. Moon), HTN, GERD who is admitted for chest pain and hypertensive urgency. GI was asked to evaluate for EGD candidacy. Recommend proceeding with a cardiac workup today. If cardiac workup negative and there are no contraindication to elective endoscopic evaluation, we are happy to arrange EGD this admission. Will discuss timing with attending as she is on ASA/Plavix. Hold NSAIDs. IV PPI 40 mg twice daily. Trial of liquid Carafate QID. I spent a total of 60 minutes on the date of service in review of patient's record, and previously obtained information in person and appropriate medical visit, discussion and education of plan, with patient and/or caregiver, placing orders for tests/referral/procedures as medically necessary and documentation of pertinent clinical information in patient's medical records for their visit today. Supervising Physician Co-Signing Physician Notes I personally saw and examined the patient. I have reviewed the chart and agree with the documentation provided by the CLEANING MATRON including discussion about the assessment, treatment and plan. Briefly, 69 year old female with history of CAD (s/p stents in 2004, bypass in 2013, follows with Dr. Moon), HTN, GERD who is admitted for chest pain and hypertensive urgency. Cardiac workup is underway but cardiology feels this may be GI related. She does relate a history of GERD as well as abdominal tenderness. Previously in [facility], she was diagnosed with H. pylori gastritis with a peptic ulcer. She did undergo treatment but during that time she was never checked for clearance. I have told her as long as her cardiac workup remains negative, we will proceed with an EGD tomorrow on Plavix. Please keep her n.p.o. after midnight we will reassess in the morning. History of Present Illness Reason for Consultation: epigastric pain, ?ulcers ?EGD (is NPO) Requesting Physician: Bashir Reinoso MD Attending Physician: Bashir Reinoso MD History of Present Illness 69 year old female with history of CAD (s/p stents in 2004, bypass in 2013, follows with Dr. Moon), HTN, GERD who is admitted for chest pain - cardiology consulted. Pt was seen and evaluated, chart reviewed. Suggest she has two separate pains. Epigastric pain which has been present, ongoing for about three months and left sided chest pain which started yesterday and has since resolved. She notes the episodes abd pain has been present and unchanged despite treatment with antacids. Explained as burning and indigestions. Has history of PUD many years ago when she was living in [place]. Does think this feels similar. She does use ASA daily and Celebrex occasionally. Denies other NSAIDs. No ETOH or tobacco. Denies chronic steroid use. No change in bowel habits. Suggests brown stools. Has seen very dark stools when constipated but denies melena or BRBPR to me. No family history of GI malignancy. There is famiy history of heart disease. H&H 12.4/37.5 EGD: 10 + years ago, PUD Colonoscopy: 5-7 years ago at OSH was told to be on a 10 year recall Allergies Allergy/AdvReac Type Severity Reaction Status Date / Time Xplpjjz-CWD-SsD Reductase AdvReac Severe LEG/MUSCLE Verified 08/12/24 07:16 Inhibitor PAIN/CRAMPS Home Medications Medication Instructions Recorded Confirmed Type acetaminophen 500 mg tablet 1,000 mg PO Q6H PRN PAIN/FEVER 08/11/24 08/11/24 History (Tylenol Extra Strength) aspirin 81 mg tablet,delayed 81 mg PO QAM 08/11/24 08/11/24 History release biotin 10,000 mcg capsule 10,000 mcg PO QAM 08/11/24 08/11/24 History carvedilol 6.25 mg tablet 6.25 mg PO BID 08/11/24 08/11/24 History celecoxib 200 mg capsule 200 mg PO BID PRN Pain 08/11/24 08/11/24 History clopidogrel 75 mg tablet 75 mg PO QAM 08/11/24 08/11/24 History evolocumab 140 mg/mL subcutaneous 140 mg subcut .Q2WKS 08/11/24 08/11/24 History pen injector (Christopher Schneider) isosorbide mononitrate 30 mg 3 mg PO QAM 08/11/24 08/11/24 History tablet,extended release 24 hr lisinopril 20 mg tablet 20 mg PO BID 08/11/24 08/11/24 History lysine 500 mg tablet (L-Lysine) 500 mg PO QAM 08/11/24 08/11/24 History pantoprazole 40 mg tablet,delayed 40 mg PO QAM 08/11/24 08/11/24 History release Patient History Social History (System 08/12/24 @ 07:16 by Nathalia Garcia) Smoking Status: Former smoker Tobacco Type: Cigarettes Cigarettes Per Day: 1 ppd; Smoking End Date: 2009; Second Hand Exposure: No; Do You Dip or Chew Tobacco: No; Tobacco Cessation Education Requested by Patient: No Hx Alcohol Use: No Hx Substance Use: No Preferred Language: Malagasy Communication Ability: Effective Puller Over Required: No Beliefs That Will Affect Care: None Current Living Situation: Spouse Other Information That Helps Us Care for You: No Feels Safe at Home: Yes Safety Concerns: Feels Safe At This Time Assistive Devices: Denture - Upper and Glasses Review of Systems Review of Systems: All other findings negative except as noted in HPI. Physical Exam Constitutional: WD/WN, vitals as above Respiratory: normal respiratory effort Cardiovascular: +murmur Gastrointestinal (Abdomen): normal bowel sounds, soft, nontender, no hepatosplenomegaly Skin: no rashes, warm and dry Results & Data Vital Signs (Past 12 Hours) Vital Signs Temp Pulse Pulse Resp BP BP Pulse Ox 08/12/24 09:37 08/12/24 07:30 97.9 F 70 20 185/79 H 95 08/12/24 05:47 70 08/12/24 03:49 97.9 F 76 20 151/68 H 93 08/12/24 00:41 97.9 F 61 18 137/53 L 97 08/11/24 23:44 97.9 F 71 16 125/71 95 O2 Del Method O2 Flow Rate 08/12/24 09:37 Room Air 08/12/24 07:30 Room Air 08/12/24 05:47 08/12/24 03:49 Room Air 08/12/24 00:41 Nasal Cannula 2 08/11/24 23:44 Room Air PG Care Time/CCT Total # of Minutes Spent Total Time Spent with Patient: Total time spent is greater than 50% in coordination of care (as documented) at patient's floor/unit and/or counseling patient: Coding Level of Care Code 25930 INT INP/OBS CARE 2/55MIN Diagnoses Epigastric pain R10.13
[2024-08-12] MEDS: ISOSORBIDE MONO EXTENDED REL 60 MG TABCR PO SCH (11:30)
--- NOTE | 2024-08-12 13:24 | Hospitalist Progress Note ---
Date of Service August 12, 2024 Assessment & Plan (1) Chest pain: (2) Hx of coronary artery bypass surgery: (3) Hypertensive urgency: (4) Epigastric pain: Plan Tracey is a 69F with a PMHx of CAD (s/p stents in 2004, bypass in 2013, follows with Dr. Moon), HTN, GERD who presents with chest pain since 10 AM this morning. initial troponin reassuring, EKG with T wave inversions, unclear if this is a new finding or not as there are no other EKGs in the system. Also with hypertensive urgency and epigastric pain that awakes her from sleep. Will admit for cardiology consultation, further workup #Chest Pain/ hx of bypass Troponin negative x3. EKG with T wave inversion V4,V5,V6 - baseline unclear, however has not progressed on serial EKGs Consult cardiology - suspect CP related to HTN or noncardiac etiology. Add amlodipine 5mg daily. Consider CTA if worsening ECHO EF 60-65%, mild LVH. sclerotic aortic valve without significant stenosis Continue Aspirin, carvedilol, plavix, imdur, lisinopril. Imdur increased to 60mg Nitro PRN Check lipids AM - on Repatha #Hypertensive Urgency Pt reports that her BPs at home have been running 180s/100s Add amlodipine 5mg daily. Consider chlorthalidone if further BP control needed. hydralazine PRN - has not required BP control improved today #Epigastric Pain / GERD Awakens her from sleep, reports black bowel movements Check Hemoccult Avoid NSAIDs Continue PPI BID. GI consulted - plan for EGD 08/13, trial carafate QID Dispo: contiuned inpatient stay, EGD tomorrow DVT proh: heparin SQ Discussed case with Dr. Ferguson Admission and Anticipated Discharge Date Admission Date: August 11, 2024 Subjective Tracey was seen sitting up to the side of the bed, still having pain, but now is more epigastric. Denies shortness of breath but has not been moving much and her shortness of breath was more with exertion. no BM since arrival to the hospital Tele - SR PACs 60s Review of Systems Review of Systems: All systems reviewed & are unremarkable except as noted in Subjective Physical Exam Physical Exam: General: NAD, VS as above Resp: normal respiratory effort, lungs clear to auscultation CV: RRR, no murmur, Abd: normal bowel sounds, tenderness to epigastric area, soft Extremities: Moves all extremities, no edema Neuro: A&O x3, Skin: intact, no lesions noted Results & Data Results & Data Vital Signs (Past 12 Hours) Vital Signs Temp Pulse Pulse Resp BP Pulse Ox O2 Del Method 08/12/24 11:24 97.7 F 73 20 178/84 H 95 Room Air 08/12/24 09:37 Room Air 08/12/24 07:30 97.9 F 70 20 185/79 H 95 Room Air 08/12/24 05:47 70 08/12/24 03:49 97.9 F 76 20 151/68 H 93 Room Air Laboratory Results cbc, chemistry, troponin reviewed PG Care Time/CCT Total # of Minutes Spent Total Time Spent with Patient: Total time spent is greater than 50% in coordination of care (as documented) at patient's floor/unit and/or counseling patient: Coding Level of Care Code 04576 SUB INP/OBS CARE 3/50MIN Diagnoses Chest pain R07.9 Hx of coronary artery bypass surgery Z95.1 Hypertensive urgency I16.0 Epigastric pain R10.13
--- NOTE | 2024-08-12 16:19 | XCELERA ---
[id number]
[2024-08-12] MEDS: SUCRALFATE 1 GM/10 ML UDC PO SCH (18:09)
[2024-08-12] MEDS: amLODIPine BESYLATE 5 MG TAB PO SCH (21:34)
--- NOTE | 2024-08-13 06:20 | Electrocardiogram Report ---
Test Reason : Blood Pressure : */* mmHG Vent. Rate : 68 BPM Atrial Rate : 68 BPM P-R Int : 192 ms QRS Dur : 96 ms QT Int : 426 ms P-R-T Axes : 38 28 83 degrees QTcB Int : 452 ms Normal sinus rhythm Nonspecific ST and T wave abnormality Abnormal ECG When compared with ECG of 11-Aug-2024 15:35, No significant change Confirmed by Sterling Ferguson ([id number]) on 08/13/2024 6:19:35 AM Referred By: REFERRED SELF Confirmed By: Sterling Ferguson
--- NOTE | 2024-08-13 06:20 | Electrocardiogram Report ---
Test Reason : Blood Pressure : */* mmHG Vent. Rate : 68 BPM Atrial Rate : 68 BPM P-R Int : 180 ms QRS Dur : 96 ms QT Int : 446 ms P-R-T Axes : 51 33 87 degrees QTcB Int : 474 ms Normal sinus rhythm Nonspecific ST and T wave abnormality Abnormal ECG No previous ECGs available Confirmed by Sterling Ferguson ([id number]) on 08/13/2024 6:19:47 AM Referred By: REFERRED SELF Confirmed By: Sterling Ferguson
--- NOTE | 2024-08-13 09:00 | Gastroenterology Progress Note ---
Date of Service August 13, 2024 Assessment & Plan (1) Epigastric pain: Plan: 69 year old female with history of CAD (s/p stents in 2004, bypass in 2013, follows with Dr. Moon), HTN, GERD who is admitted for chest pain and hypertensive urgency for cardiology evaluation - no further inpatient cardiac testing planned. Echo reviewed: EF 60-65%, no wall motion abnormality, mild mitral regurgitation Maintain NPO status for EGD evaluation We appreciate assistance in the management of any serological abnormality and corrections to include: hemoglobin >7, INR <2, platelets >50,000, potassium levels >3.5 but <5.3, and sodium levels within 5 points of the reference range prior to endoscopic evaluation. Admission and Anticipated Discharge Date Admission Date: August 11, 2024 Supervising Physician Co-Signing Physician Notes I personally saw and examined the patient. I have reviewed the chart and agree with the documentation provided by the POWER REGULATOR including discussion about the assessment, treatment and plan. Briefly, cardiac workup so far has been negative. Will proceed with EGD to rule out peptic ulcer disease gastritis esophagitis. Patient is n.p.o. Subjective Pt was seen and evaluated, chart reviewed. Ongoing epigastric pain. No nausea/vomiting. No black or bloody stools. Review of Systems Review of Systems: All other findings negative except as noted in HPI. Physical Exam Constitutional: well developed and well nourished Respiratory: normal respiratory effort, lungs clear to auscultation Cardiovascular: Rate/Rhythm: regular rate and regular rhythm + murmur Gastrointestinal (Abdomen): normal bowel sounds, soft, nontender, no hepatosplenomegaly Skin: no rashes, warm and dry Results & Data Results & Data Vital Signs (Past 12 Hours) Vital Signs Temp Pulse Pulse Pulse Resp BP BP 08/13/24 08:19 98.2 F 70 18 158/82 H 08/13/24 03:45 97.7 F 79 16 160/73 H 08/12/24 22:39 97.9 F 75 20 137/75 08/12/24 21:46 84 08/12/24 21:00 Pulse Ox O2 Del Method 08/13/24 08:19 94 Room Air 08/13/24 03:45 92 Room Air 08/12/24 22:39 96 Room Air 08/12/24 21:46 08/12/24 21:00 Room Air Laboratory Results 08/13/24 Range/Units 07:12 Triglycerides 130 (0-150) mg/dl Cholesterol 165 (0-200) mg/dl LDL Cholesterol, Calc 84 mg/dl VLDL Cholesterol, Calc 26 (0-30) mg/dl HDL Cholesterol 55 mg/dl Cholesterol/HDL Ratio 3.0 (0-5) PG Care Time/CCT Total # of Minutes Spent Total Time Spent with Patient: Total time spent is greater than 50% in coordination of care (as documented) at patient's floor/unit and/or counseling patient: Coding Level of Care Code None Diagnoses Epigastric pain R10.13
--- NOTE | 2024-08-13 10:31 | Cardiology Progress Note ---
Date of Service August 13, 2024 Assessment & Plan (1) CAD (coronary artery disease): (2) Hx of coronary artery bypass surgery: (3) S/P coronary artery stent placement: (4) Hypertensive urgency: (5) Hypertension: (6) Epigastric pain: Plan ASSESSMENT/PLAN: 1. Hypertensive urgency: Blood pressure has improved with episodes of hypertension and normotension. New KENIA inhibitor, carvedilol, and newly started amlodipine. It was noted that Nitropaste was still applied even though previously discontinued. Asked nursing staff to remove. If further therapy is needed, could then add low-dose diuretic such as chlorthalidone. 2. CAD s/p PCI x 2 and then CABG x 2: Longstanding chest discomfort of at least 24 hours with negative high-sensitivity troponin. Chest pain does not suggest ischemic heart disease as the etiology. Recommend blood pressure management as above. Continue beta-jessica. Intolerant to statin therapy. Continue PCSK9 inhibitor. 3. Chest pain: Atypical and that it has been occurring for at least 24 hours high-sensitivity troponin levels remain normal. Echo unremarkable. Chest pain may be due to hypertension, especially given significant improvement once blood pressure has improved. 4. Hypertension: As above. Can titrate amlodipine if necessary or start low- dose diuretic such as hydrochlorothiazide or chlorthalidone. 5. Dyslipidemia: Statin intolerant. Takes PCSK9 inhibitor in the outpatient setting. Continue PCSK9 inhibitor. LDL not at goal but she admits that she missed a few doses of Repatha recently. Can repeat labs in the future after taking more regularly. Encouraged to take Repatha as prescribed. 6. Epigastric pain: Seems to be her biggest pain issue currently and also tender on examination with a history of ulcer. EGD planned today. 7. Disposition: Cardiology will sign off at this time. Please call with any further questions or concerns. She asked to schedule outpatient appointment to transfer cardiology care to [facility]. Outpatient appointment scheduled. Admission and Anticipated Discharge Date Admission Date: August 11, 2024 Subjective She was seen this morning. Chest pain has completely resolved. Epigastric pain recurred however this morning. She was waiting for EGD to be completed. She denies shortness of breath, syncope, near syncope, palpitations, or worsening edema. She was unaccompanied. Physical Exam Physical Exam: Gen.: No acute distress. Alert and oriented. HEENT: Anicteric sclera. Neck: No JVD. Cardiac: Regular. Normal S1-S2. 1/6 systolic ejection murmur best heard at the right upper sternal border. Pulmonary: Clear to auscultation bilaterally without wheezes, rales, or rhonchi. Abdomen: Soft, nondistended, with normoactive bowel sounds. No bruits noted. Epigastric tenderness. Extremities: 2+ radial pulses bilaterally. 2+ posterior tibialis pulses bilaterally. Trace right lower extremity edema. Trace to 1+ left lower extremity edema. Left lower extremity is larger in circumference compared to the right (chronic per patient). s/p left lower extremity vein harvest. No edema. Results & Data Vital Signs (Past 12 Hours) Vital Signs Temp Pulse Pulse Resp BP BP Pulse Ox 08/13/24 08:19 36.8 C 70 18 158/82 H 94 08/13/24 03:45 36.5 C 79 16 160/73 H 92 08/12/24 22:39 36.6 C 75 20 137/75 96 O2 Del Method 08/13/24 08:19 Room Air 08/13/24 03:45 Room Air 08/12/24 22:39 Room Air Laboratory Results Laboratory Results - last 24 hr 08/13/24 07:12 Triglycerides 130 Cholesterol 165 LDL Cholesterol, Calc 84 VLDL Cholesterol, Calc 26 HDL Cholesterol 55 Cholesterol/HDL Ratio 3.0 Diagnostic Findings Chart reviewed. GI note reviewed. Labs reviewed. LDL elevated in the setting of CAD. Telemetry personally reviewed: Sinus rhythm. No arrhythmia. Medications Administered Current Inpatient Medications Acetaminophen (Acetaminophen 500 Mg Tab) 1,000 mg PO Q8 PRN PRN Reason: Pain or Fever Stop: 09/10/24 19:42 Last Admin: 08/12/24 13:08 Dose: 1,000 mg Amlodipine Besylate (Amlodipine Besylate 5 Mg Tab) 5 mg PO HS LENORA Stop: 09/11/24 20:59 Last Admin: 08/12/24 21:34 Dose: 5 mg Aspirin (Aspirin 81 Mg Ectab) 81 mg PO QAM LENORA Stop: 09/11/24 08:59 Last Admin: 08/12/24 08:11 Dose: 81 mg Carvedilol (Carvedilol 6.25 Mg Tab) 6.25 mg PO BID LENORA Stop: 09/10/24 20:59 Last Admin: 08/12/24 21:29 Dose: 6.25 mg Clopidogrel Bisulfate (Clopidogrel Bisulfate 75 Mg Tab) 75 mg PO QAM [facility] Stop: 09/11/24 08:59 Last Admin: 08/12/24 08:11 Dose: 75 mg Hydralazine HCl (Hydralazine Hcl 20 Mg/Ml Vial) 10 mg IV Q4H PRN PRN Reason: Hypertension Stop: 09/10/24 19:42 Isosorbide Mononitrate (Isosorbide [place] Extended Rel 60 Mg Tabcr) 60 mg PO QAM [facility] Stop: 09/11/24 08:59 Last Admin: 08/12/24 11:30 Dose: 60 mg Lisinopril (Lisinopril 20 Mg Tab) 20 mg PO BID [facility] Stop: 09/10/24 20:59 Last Admin: 08/12/24 21:29 Dose: 20 mg Nitroglycerin (Nitroglycerin Sl 0.4 Mg/Tab Tab) 0.4 mg SL Q5M PRN PRN Reason: Chest Pain Stop: 09/10/24 15:45 Last Admin: 08/11/24 17:10 Dose: 0.4 mg Ondansetron HCl (Ondansetron Inj 2 Mg/Ml 2 Ml Vial) 4 mg IV Q6H PRN PRN Reason: Nausea Stop: 09/10/24 19:42 Pantoprazole Sodium (Pantoprazole 40 Mg Tab) 40 mg PO BID [facility] Stop: 09/10/24 20:59 Last Admin: 08/12/24 21:28 Dose: 40 mg Sucralfate (Sucralfate 1 Gm/10 Ml Udc) 1 gm PO QID [facility] Stop: 09/11/24 16:59 Last Admin: 08/12/24 21:29 Dose: 1 gm PG Care Time/CCT Total # of Minutes Spent Total Time Spent with Patient: Total time spent is greater than 50% in coordination of care (as documented) at patient's floor/unit and/or counseling patient: Coding Level of Care Code 86934 SUB INP/OBS CARE 3/50MIN Diagnoses CAD (coronary artery disease) I25.10 Hx of coronary artery bypass surgery Z95.1 S/P coronary artery stent placement Z95.5 Hypertensive urgency I16.0 Hypertension I10 Epigastric pain R10.13
--- NOTE | 2024-08-13 11:15 | Anesthesiology Consultation ---
Date of Service August 13, 2024 Assessment & Plan Chart Review Chart Review: Acceptable Risk for Surgery and Patient NOT seen in Pre Admission Testing Consults Requested none ASA ASA4 Proposed Anesthesia Anesthesia Type: MAC History Surgery Operation Date: 08/13/24 16:30 Proposed Procedures p Esophagogastroduodenoscopy Cecile Huber MD Height/Weight Height: 5 ft 5 in Weight: 109.4 kg Allergies Allergy/AdvReac Type Severity Reaction Status Date / Time [id number]-[id number]-[id number] Reductase AdvReac Severe LEG/MUSCLE Verified 08/12/24 07:16 Inhibitor PAIN/CRAMPS Medications Home Medications Medication Instructions Recorded Confirmed Last Taken acetaminophen 500 mg tablet 1,000 mg PO Q6H PRN PAIN/FEVER 08/11/24 08/11/24 Unknown (Tylenol Extra Strength) aspirin 81 mg tablet,delayed 81 mg PO QAM 08/11/24 08/11/24 08/11/24 release biotin 10,000 mcg capsule 10,000 mcg PO QAM 08/11/24 08/11/24 08/11/24 carvedilol 6.25 mg tablet 6.25 mg PO BID 08/11/24 08/11/24 08/11/24 08:00 celecoxib 200 mg capsule 200 mg PO BID PRN Pain 08/11/24 08/11/24 Unknown clopidogrel 75 mg tablet 75 mg PO QAM 08/11/24 08/11/24 08/11/24 evolocumab 140 mg/mL subcutaneous 140 mg subcut .Q2WKS 08/11/24 08/11/24 Unknown pen injector (Christopher Schneider) isosorbide mononitrate 30 mg 3 mg PO QAM 08/11/24 08/11/24 08/11/24 tablet,extended release 24 hr lisinopril 20 mg tablet 20 mg PO BID 08/11/24 08/11/24 08/11/24 08:00 lysine 500 mg tablet (L-Lysine) 500 mg PO QAM 08/11/24 08/11/24 08/11/24 pantoprazole 40 mg tablet,delayed 40 mg PO QAM 08/11/24 08/11/24 08/11/24 release Active Medications Generic Name Dose Route Start Last Admin Trade Name Freq PRN Reason Stop Dose Admin Acetaminophen 1,000 mg 08/11/24 19:43 08/12/24 13:08 Acetaminophen 500 Mg Tab PO 09/10/24 19:42 1,000 mg Q8 PRN Administration Pain or Fever Amlodipine Besylate 5 mg 08/12/24 21:00 08/12/24 21:34 Amlodipine Besylate 5 Mg Tab PO 09/11/24 20:59 5 mg HS LENORA Administration Aspirin 81 mg 08/12/24 09:00 08/12/24 08:11 Aspirin 81 Mg Ectab PO 09/11/24 08:59 81 mg QAM LENORA Administration Carvedilol 6.25 mg 08/11/24 21:00 08/13/24 10:40 Carvedilol 6.25 Mg Tab PO 09/10/24 20:59 6.25 mg BID LENORA Administration Clopidogrel Bisulfate 75 mg 08/12/24 09:00 08/13/24 10:40 Clopidogrel Bisulfate 75 Mg Tab PO 09/11/24 08:59 75 mg QAM LENORA Administration Isosorbide Mononitrate 60 mg 08/12/24 09:00 08/13/24 10:40 Isosorbide [place] Extended Rel 60 Mg Tabcr PO 09/11/24 08:59 60 mg QAM LENORA Administration Lisinopril 20 mg 08/11/24 21:00 08/13/24 10:41 Lisinopril 20 Mg Tab PO 09/10/24 20:59 20 mg BID LENORA Administration Nitroglycerin 0.4 mg 08/11/24 15:46 08/11/24 17:10 Nitroglycerin Sl 0.4 Mg/Tab Tab SL 09/10/24 15:45 0.4 mg Q5M PRN Administration Chest Pain Pantoprazole Sodium 40 mg 08/11/24 21:00 08/13/24 10:41 Pantoprazole 40 Mg Tab PO 09/10/24 20:59 40 mg BID LENORA Administration Sucralfate 1 gm 08/12/24 17:00 08/13/24 10:41 Sucralfate 1 Gm/10 Ml Udc PO 09/11/24 16:59 1 gm QID LENORA Administration Past Medical History Medical History Chronic GERD CAD, S/P PTCA + stent S/P CABG HLD HTN morbid obesity anemia GERD Exercise / Class Metabolic Activity III < 4 Walking/Shop/Light housework Past Anesthesia History No Hx of Anesthesia Complications and No Family Hx of Anesthesia Complications History of PONV No Hx of PONV and No Hx of Motion Sickness Social History Smoking Status: Former smoker Smoking cigarettes per day: 1 ppd Do You Dip or Chew Tobacco: No Smoking End Date: 2009 Hx Alcohol Use: No Hx Substance Use: No substance use type: does not use Physical Exam Vital Signs Last Vital Signs Temp 36.8 C 08/13/24 08:19 Pulse 70 08/13/24 08:19 Resp 18 08/13/24 08:19 BP 158/82 H 08/13/24 08:19 Pulse Ox 94 08/13/24 08:19 O2 Del Method Room Air 08/13/24 08:19 O2 Flow Rate 2 08/12/24 00:41 Testing Laboratory Results 08/12/24 06:13 08/12/24 06:13 Electrocardiogram Date: 08/12/24 Findings: + NSR @ (@ 68;NS ST & T wave abnormality) Chest X-Ray Date: 08/11/24 Findings: + NAD, + cardiomegaly and + other (sternal wires median sternotomy) Echocardiogram Date: 08/12/24 EF: 60% LV Function: normal RWMA: + none Other Findings: + atrial enlargement (mild LA dilation) Valvular Disease: + no significant valvular disease and + MR
[2024-08-13] MEDS ORDERED: ePHEDrine sulfate 50 MG/ML AMP IV PRN (12:21)
[2024-08-13] MEDS ORDERED: ATROPINE SULFATE 0.1 MG/ML 10ML SYR IV PRN (12:21)
--- NOTE | 2024-08-13 12:50 | GI REPORT ---
[facility] Patient: JIMMY MARRERO : 1955 Sex at : Female Age: 69 Years Procedure: Upper GI endoscopy Date: 08/13/2024 Attending Physician: Avila Huber MD Referring MD: Referred Self; Bashir Reinoso MD Indications: - Epigastric abdominal pain - Chest pain (non cardiac) Medications: - Monitored Anesthesia Care Complications: - No immediate complications. Estimated Blood Loss: - Estimated blood loss: None. - Estimated blood loss was minimal. Procedure: - Prior to the procedure, a History and Physical was performed, and patient medications and allergies were reviewed. The patient's tolerance of previous anesthesia was also reviewed. The risks and benefits of the procedure and the sedation options and risks were discussed with the patient. All questions were answered, and informed consent was obtained. Prior Anticoagulants: The patient has taken Plavix (clopidogrel), last dose was day of procedure. ASA Grade Assessment: IV - A patient with severe systemic disease that is a constant threat to life. After reviewing the risks and benefits, the patient was deemed in satisfactory condition to undergo the procedure. - The egd scope was introduced through the mouth and advanced to the third part of the duodenum. - The upper GI endoscopy was accomplished without difficulty. - The patient tolerated the procedure well. Findings: - A medium-sized hiatal hernia was present. - Patchy moderate inflammation characterized by erythema was found in the gastric body. Biopsies were taken with a cold forceps for Helicobacter pylori testing. - One non-bleeding superficial gastric ulcer with no stigmata of bleeding was found in the gastric antrum. The lesion was 6 mm in largest dimension. - The examined duodenum was normal. Impression: - Medium-sized hiatal hernia. - Acute gastritis, characterized by erythema. Biopsied. - Non-bleeding gastric ulcer with no stigmata of bleeding. - Normal examined duodenum. Recommendation: - Discharge patient to home (ambulatory). - Resume previous diet. - Continue present medications. - Await pathology results. - Return to primary care physician as previously scheduled. - Patient has a contact number available for emergencies. The signs and symptoms of potential delayed complications were discussed with the patient. Return to normal activities tomorrow. Written discharge instructions were provided to the patient. - Use Protonix (pantoprazole) 40 mg PO BID for 1 week. - then once daily for 3 months - Cardiac diet today. - Patient has a small clean-based gastric ulcer with gastritis and a hiatal hernia. Her epigastric pain is likely from this and a portion of her cardiac pain is likely from reflux. Start PPI twice daily for 1 week and then once daily for 3 months at least. Follow-up biopsies. GI will sign off. She can start a cardiac diet. Please call us with any questions. Procedure Code(s): - 82536, Esophagogastroduodenoscopy, flexible, transoral; with biopsy, single or multiple Diagnosis Code(s): - R10.13, Epigastric pain - R07.89, Other chest pain - K44.9, Diaphragmatic hernia without obstruction or gangrene - K29.00, Acute gastritis without bleeding - K25.9, Gastric ulcer, unspecified as acute or chronic, without hemorrhage or perforation CPT(R) - 2023 copyright [employer]. All Rights Reserved. The CPT codes, CCI edits and ICD codes generated are intended as suggestions and were generated based on input data. These codes are preliminary and upon travel nurse review may be revised to meet current compliance and payer requirements. The provider is responsible for the final determination of appropriate codes, and modifiers. Avila Huber MD This document has been electronically signed. Note Initiated:08/13/2024 Note Completed:08/13/2024 12:50 PM [id number]
--- NOTE | 2024-08-13 12:51 | Anesthesiology Progress Note ---
Date of Service August 13, 2024 Anesthesia Post Procedure Vital Signs Vital Signs: Temp Pulse Pulse Pulse Resp BP BP 08/13/24 12:18 36.4 C L 64 16 159/86 H 08/13/24 11:30 36.5 C 66 20 162/81 H 08/13/24 08:19 36.8 C 70 18 158/82 H 08/13/24 03:45 36.5 C 79 16 160/73 H 08/12/24 22:39 36.6 C 75 20 137/75 08/12/24 21:46 84 08/12/24 21:00 08/12/24 19:52 36.6 C 74 20 124/78 08/12/24 17:41 158/76 H 08/12/24 15:42 36.4 C L 67 20 102/54 L 08/12/24 13:02 72 Pulse Ox O2 Del Method 08/13/24 12:18 94 Room Air 08/13/24 11:30 94 Room Air 08/13/24 08:19 94 Room Air 08/13/24 03:45 92 Room Air 08/12/24 22:39 96 Room Air 08/12/24 21:46 08/12/24 21:00 Room Air 08/12/24 19:52 94 Room Air 08/12/24 17:41 08/12/24 15:42 94 Room Air 08/12/24 13:02 Pain Intensity Chest: Pain Intensity: 3 Abdomen: Pain Intensity: 2 Transfer of Care Handoff Completed per policy Notes Mental Status: alert / awake / arousable Patient Amnestic to Procedure: Yes Nausea / Vomiting: adequately controlled Pain: adequately controlled Airway Patency, RR, SpO2: stable & adequate BP & HR: stable & adequate Hydration State: stable & adequate Anesthetic Complications: no major complications apparent
[2024-08-13 13:33] VITALS: RESP 18
--- NOTE | 2024-08-13 14:08 | Discharge Summary ---
Discharge Summary Date of Service August 13, 2024 Principal Dx & Hospital Course #1 = Principal Diagnosis (1) Chest pain: (2) Hx of coronary artery bypass surgery: (3) Hypertensive urgency: (4) Epigastric pain: Plan #Chest Pain/ hx of bypass Tracey is a 69F with a PMHx of CAD (s/p stents in 2004, bypass in 2013, follows with Dr. Moon), HTN, GERD who presents with chest pain since 10 AM this morning. initial troponin reassuring, EKG with T wave inversions, unclear if this is a new finding or not as there are no other EKGs in the system. Also with hypertensive urgency and epigastric pain that awakes her from sleep. Admitted for workup and cardiology consult. Cardiology workup was negative with 3 negative troponin, EKG unchanged, ECHO EF 60-65%, mild LVH. sclerotic aortic valve without significant stenosis. Lipid panel showing good control with statin. Cardiology consulted - suspect CP related to HTN or noncardiac etiology. Added amlodipine 5mg with improvement of blood pressure control. Continue Aspirin, carvedilol, plavix, imdur, lisinopril. Imdur increased to 60mg. Updated nitro rx sent to the pharmacy. #Hypertensive Urgency Med changes as above - recommend keeping log of BPs and taking to next cardiology appointment #Epigastric Pain / GERD Awakens her from sleep, reports black bowel movements. GI consulted, underwent EGD showing nonbleeding ulcer, gastritis and hiatal hernia. Recommend BID PPI x 1 week then daily. H.pylori bx pending. Avoid NSAIDs Dispo: discharge to home today Notes For Next Care Provider transferred her cardiology care to [place] Medication Changes From Visit add daily amlodopine 5mg PPI increased to BID x 7 days nitro prn imdur increased to 60 Admission HPI Per Admitting Provider Tracey is a 69F with a PMHx of CAD (s/p stents in 2004, bypass in 2013, follows with Dr. Moon), HTN, GERD who presents with chest pain since 10 AM this morning. Reports that she has had this pain on and off for the last month or so, comes and goes without intervention. She has as needed nitro at home but has not taken this because it is . The pain mainly happens at rest, does not seem to get worse with activity. During her episodes of pain she denies associated shortness of breath but does report flushing as well as sweating, sometimes she is lightheaded. The episode that started at 10 AM this morning was worse than prior and not going away which prompted her to come to the emergency department. States that she has been checking her blood pressures at home and they have been running 180s/90-100s for the last week. Reports compliance with her medication Follows with Dr. Duarte in [place], has not been seen there in about a year. Is looking to transfer her care to [facility] Extensive family hx of cardiac issues (brother - stroke, 2 brothers with bypass, Mother & Father - needing open heart surgery) Had a knee replacement in February and has been taking more NSAIDs since including Celebrex Also notes epigastric pain that awakens her from sleep, is not able to lay flat. Does not feel shortness of breath when she lays flat but just epigastric pain. Has noticed some dark/ black stool when she gets constipated while taking pain meds ED course: Aspirin 324 mg Nitro x 2 Discharge Exam General: NAD, VS as above Resp: normal respiratory effort, lungs clear to auscultation CV: RRR, no murmur, Abd: normal bowel sounds, tenderness to epigastric area, soft Extremities: Moves all extremities, no edema Neuro: A&O x3, Skin: intact, no lesions noted Discharge Plan Discharge Items Patient Disposition: Home - Self-Care Reason For Visit: CHEST PAIN Discharge Diagnosis: Chest Pain - from hypertension and GERD Activity: Resume your previous activity Weightbearing: Full weightbearing Non-emergency contact: Primary Care Provider Call non-emergency contact if: you have any medication questions, your pain is not controlled and your temperature is above 101 Follow-up/Referrals: Sterling Ferguson MD [Physician] - (keep follow up as scheduled ) Jojo Harrison MD [Primary Care Provider] - 08/24/24 1:45 pm (Follow up within one week - scheduled 08/24/24 at 1:45 with Jojo Harrison ) Diet: Heart Healthy Addtl Attending Provider Instructions: Ms. Olson, You were hospitalized after having worsening chest pain. Thankfully this was not found to be a heart attack. The chest pain was likely from the high blood pressure and the gastric ulcer and gastritis. You have been started on acid reflux medication and increased blood pressure medications to help treat these. You have also been transferred to the [facility] cardiology appointment and follow up has already been scheduled. You had testing for H.pylori done during your biopsy, these results are pending. Recommendations: * Take protonix, twice a day for one week then decrease to once day for three months. I have attached information about gastritis and ulcer and how to prevent them in the future. * Imdur increased to 60mg daily to help prevent chest pain * Amlodipine 5mg added for better blood pressure control. This is once a day medication, you can take morning or night. * Please continue to take your blood pressure at home and keep a log and take with you to your next cardiology appointment * Please call Dr. Moon's office and ask them to fax your records to [facility] cardiology ( ) * I have refilled your nitroglycerin so you have an indate prescription if needed. Activity: You can do normal everyday activities as your body allows. Take rest breaks if you feel tired. Do not overexert. Stop activity if you have pain, shortness of breath or feel dizzy. Follow-up appointments: Make an appointment with your primary care physician within one week of discharge. A copy of this summary will be sent to them. Every time you see your primary care physician, or any other doctor, bring your medication list, and a list of questions. CONTACT YOUR PRIMARY CARE PROVIDER if you experience any of the following: Shortness of breath or difficulty breathing Fevers or chills Feeling tired with normal activity or experiencing dizziness or fainting Difficulty following your treatment plan, or difficulty taking medications CALL 911 OR GO TO THE EMERGENCY DEPARTMENT if you experience any of the following: Severe abdominal pain or nausea/vomiting Severe chest pain, or chest pain that radiates (moves) to your jaw or arm Sudden, severe shortness of breath or difficulty breathing Thank you for allowing us to participate in your care. Trina Sharif PA-C Pending Studies at Discharge: Yes (h.pylori bx ) Stand-Alone Forms: [facility] [employer], Smoking Cessation Medications and DC Order Prescriptions: New amlodipine [Norvasc] 5 mg Tablet 5 mg PO HS 30 Days Qty: 30 0RF isosorbide mononitrate 60 mg Tablet Extended Release 24 Hr 60 mg PO QAM 30 Days Qty: 30 0RF nitroglycerin [Nitrostat] 0.4 mg Tablet, Sublingual 0.4 mg sublingual Q5M PRN (Reason: chest pain) Qty: 15 0RF Rx Instructions: if need 3 doses, report to ER pantoprazole 40 mg Tablet,Delayed Release (Dr/Ec) 40 mg PO BID 7 Days Qty: 14 0RF Rx Instructions: then resume once daily Continued carvedilol 6.25 mg tablet 6.25 mg PO BID lisinopril 20 mg tablet 20 mg PO BID clopidogrel 75 mg tablet 75 mg PO QAM aspirin 81 mg Tablet,Delayed Release (Dr/Ec) 81 mg PO QAM acetaminophen [Tylenol Extra Strength] 500 mg Tablet 1,000 mg PO Q6H PRN (Reason: PAIN/FEVER) pantoprazole 40 mg tablet,delayed release (DR/EC) 40 mg PO QAM biotin 10,000 mcg Capsule 10,000 mcg PO QAM lysine [L-Lysine] 500 mg Tablet 500 mg PO QAM Repatha SureClick 140 mg/mL pen injector 140 mg SUBCUT .Q2WKS Rx Instructions: TAKES EVERY OTHER SATURDAY Discontinued celecoxib 200 mg capsule 200 mg PO BID PRN (Reason: Pain) isosorbide mononitrate 30 mg tablet extended release 24 hr 3 mg PO QAM Discharge Orders: Discharge Order (Routine); Ordered 08/13/24 Ordered By: Trina Sorensen/Other Patient Handouts: Treating Gastritis, ED Gastritis Ulcer No Abx Admission Data Admit Date/Time: 08/11/24 17:20 Attending Provider: Bashir Reinoso Admit Provider: Boston Davis Primary Care Provider: Jojo Harrison Other Providers: Alesia Friend; Sterling Ferguson; Avila Huber Other Interventions: Discharge Summary Assessment (RN) Last Done: 08/13/24 14:06 Hospital Stay Data Consultations 08/11/24 16:45 ED Decision to Admit Stat 08/11/24 19:43 Consult Cardiology Routine 08/12/24 11:00 Consult Gastroenterology Routine Procedures Performed Operation Date: 08/13/24 16:30 Actual Procedures p EGD Biopsy Cytology - Avila Hbuer MD Diagnostic Imagining Performed Chest X-Ray 08/11/24 15:47 EXAM: Radiograph of the Chest 1 View INDICATION: Chest pain TECHNIQUE: Frontal view of the chest. COMPARISON: No relevant prior studies available. FINDINGS: Artifacts: Artifact shadow partially situated by technique. Lungs and pleural spaces: Prominent probable chronic interstitial thickening. No consolidation or pulmonary edema. No pleural effusion or pneumothorax. Heart: Mild enlargement of the cardiac shadow noted partially accentuated by technique. Sternal wires likely reflecting previous coronary bypass. Mediastinum: There is a small hiatal hernia. Bones/joints: No fracture, erosion or dislocation. Soft tissues: No abnormality noted. No radiopaque foreign body noted. Upper abdomen: No abnormality noted. IMPRESSION: No acute cardiopulmonary disease. ACT 112: N/A Electronically signed by Janeth Mobley 08-11-2024 4:51 PM Pending Results Patient Have Any Pending Studies at Discharge: Yes (h.pylori bx ) Discharge Instructions Given to Patient (Per Discharging Provider) Ms. Olson, Ron were hospitalized after having worsening chest pain. Thankfully this was not found to be a heart attack. The chest pain was likely from the high blood pressure and the gastric ulcer and gastritis. You have been started on acid reflux medication and increased blood pressure medications to help treat these. You have also been transferred to the [facility] cardiology appointment and follow up has already been scheduled. You had testing for H.pylori done during your biopsy, these results are pending. Recommendations: * Take protonix, twice a day for one week then decrease to once day for three months. I have attached information about gastritis and ulcer and how to prevent them in the future. * Imdur increased to 60mg daily to help prevent chest pain * Amlodipine 5mg added for better blood pressure control. This is once a day medication, you can take morning or night. * Please continue to take your blood pressure at home and keep a log and take with you to your next cardiology appointment * Please call Dr. Moon's office and ask them to fax your records to [facility] cardiology ( ) * I have refilled your nitroglycerin so you have an indate prescription if needed. Activity: You can do normal everyday activities as your body allows. Take rest breaks if you feel tired. Do not overexert. Stop activity if you have pain, shortness of breath or feel dizzy. Follow-up appointments: Make an appointment with your primary care physician within one week of discharge. A copy of this summary will be sent to them. Every time you see your primary care physician, or any other doctor, bring your medication list, and a list of questions. CONTACT YOUR PRIMARY CARE PROVIDER if you experience any of the following: Shortness of breath or difficulty breathing Fevers or chills Feeling tired with normal activity or experiencing dizziness or fainting Difficulty following your treatment plan, or difficulty taking medications CALL 911 OR GO TO THE EMERGENCY DEPARTMENT if you experience any of the following: Severe abdominal pain or nausea/vomiting Severe chest pain, or chest pain that radiates (moves) to your jaw or arm Sudden, severe shortness of breath or difficulty breathing Thank you for allowing us to participate in your care. Trina Sharif PA-C Total Time Total Time Spent Total Time Spent (In Minutes): Time spent day of discharge 34 minutes including direct patient care, medication reconciliation, documentation, review of labs and images, and coordination of care. Coding Level of Care Code 60065 INP/OBS DISCH >30 MIN Diagnoses Chest pain R07.9 Hx of coronary artery bypass surgery Z95.1 Hypertensive urgency I16.0 Epigastric pain R10.13
[2024-08-13] MEDS: LIDOCAINE 2% 2 ML VIAL/AMP(20MG/ML) INFIL ONE (14:26)
[2024-08-13] MEDS: PROPOFOL IV EMULSION 10 MG/ML 20 ML VIAL IV ONE (14:26)
[2024-08-13 15:39] VITALS: BP 148/80; PULSE 64; TEMP 97.7; O2SAT 96
== END 2024-08-13 15:40 | disposition home or self-care (01) ==
LOC: EDINP 15:22 → ED 15:22 → EDBD 15:22 → MERGE 17:20 → SUATTDRO 17:20 → 2N 19:44